=== PATIENT | female | born 1955 | race Caucasian/White ===

== ENCOUNTER 2021-02-02 14:06 | Outpatient (CLI) | payer MEDICARE, MEDICAID | END 2021-02-02 23:59 | disposition home or self-care (01) | LOC: 64 CT 14:06 | PROVIDERS: ATTEND Podiatrist Foot & Ankle Surgery | DX: S82.52XA Displaced fracture of medial malleolus of left tibia, initial encounter for closed fracture (principal); S82.832A Other fracture of upper and lower end of left fibula, initial encounter for closed fracture; M25.472 Effusion, left ankle; X58.XXXA Exposure to other specified factors, initial encounter; Y93.89 Activity, other specified; Y92.89 Other specified places as the place of occurrence of the external cause; Y99.8 Other external cause status | CPT/HCPCS: 73700 ==

== ENCOUNTER 2021-02-09 13:19 | Day surgery (SDC) | payer MEDICARE, MEDICAID ==
[2021-02-05 15:27] LABS: BASOPHILS # (AUTO) 0.1 X10'3 (0-0.2); EOSINOPHILS # (AUTO) 0.1 X10'3 (0-0.9); MONOCYTES # (AUTO) 0.8 X10'3 (0-0.9)
[2021-02-05 15:29] LABS: BASOPHILS % (AUTO) 0.7 % (0-1); EOSINOPHILS % (AUTO) 1.1 % (0-6); LYMPHOCYTES # (AUTO) 1.4 X10'3 (1.1-4.8); LYMPHOCYTES % (AUTO) 13.9 % (21-51); MEAN CORPUSCULAR HEMOGLOBIN 27.6 PG (27.0-31.0); MEAN CORPUSCULAR HGB CONC 32.2 g/dL (33.0-36.5); MEAN CORPUSCULAR VOLUME 85.8 FL (78-98); MONOCYTES % (AUTO) 7.3 % (2-12); PRE OP HEMATOCRIT 30.6 % (35.0-45.0); PRE OP PLATELET COUNT 710 X10'3 (140-440); RED BLOOD COUNT 3.57 X10'6 (4.20-5.60)
[2021-02-05 15:31] LABS: PRE OP HEMOGLOBIN 9.9 g/dL (12.0-16.0)
[2021-02-05 15:37] LABS: ALBUMIN 2.9 G/DL (3.4-5.0); ALBUMIN/GLOBULIN RATIO 0.6 (1.1-1.5); ALKALINE PHOSPHATASE 307 IU/L (46-116); BLOOD UREA NITROGEN 19 MG/DL (7-18); BUN/CREATININE RATIO 16.8 (6.6-38.0); CALCIUM 10.1 MG/DL (8.5-10.1); CHLORIDE 102 MMOL/L (99-107); CREATININE 1.13 MG/DL (0.40-0.90); PRE OP ALT 46 U/L (30-65); PRE OP ANION GAP 11 (8-16); PRE OP AST 39 U/L (10-37); PRE OP BILIRUB, TOTAL 0.6 MG/DL (0.0-1.0); PRE OP GLUCOSE 111 MG/DL (70-104); PRE OP POTASSIUM 3.9 MMOL/L (3.4-5.1); PRE OP SODIUM 140 MMOL/L (135-145); TOTAL CARBON DIOXIDE 27.3 MMOL/L (24-32); TOTAL PROTEIN 7.9 G/DL (6.4-8.2); eGFR 48 ML/MIN
[2021-02-05 16:09] LABS: LARGE PLATELETS FEW; PLATELET ESTIMATE INCREASED
[2021-02-09] VITALS (8 sets, daily range): BP systolic 145–169; BP diastolic 65–75
[~2021-02-09] VITALS: Ht 157.5 cm; Wt 106.6 kg
[~2021-02-09 13:19] MED LIST: DOXY100C77 PO; DULO-31 PO; HYDR-3972 PO; LOSA25TA96 PO; OXYB10TA30 PO; cefazolin/dext.iso 2gm/100ml 100 ML IV ONE; famotidine 20mg tablet PO ONE; ringers solution, lacted 1,000 ML IV SCH; vancomycin 1,500 MG in NS 300ml IV soln IV ONE
[2021-02-09] MEDS ORDERED: ROPIVAcaine 0.2%/PF PUMP/bolus 545 ML POPLITEAL SCH (15:45)
[2021-02-09] MEDS ORDERED: ringers solution, lacted 1,000 ML IV SCH (15:45)
[2021-02-09] MEDS ORDERED: fentaNYL/PF 50MCG/1 ML 2ML syringe IV PRN ×2 (15:45)
[2021-02-09] MEDS ORDERED: labetalol 20mg/4ml (5mg/ml) syringe IV PRN (15:45)
[2021-02-09] MEDS ORDERED: morphine 4 MG/ML inj SYRINge IV PRN (15:45)
[2021-02-09] MEDS ORDERED: ROPIVAcaine 0.2% (10 MG/5 ML) BOLUS INJECTION POPLITEAL PRN (15:45)
[2021-02-09] MEDS ORDERED: morphine 2 MG/ML inj. syringe IV PRN (15:45)
[2021-02-09] MEDS ORDERED: ondansetron/PF 4mg/2ml inj IV PRN (15:45)
[2021-02-09] MEDS ORDERED: enalaprilat dihydrate 2.5mg/2ml vial IV PRN (15:45)
[2021-02-09] MEDS ORDERED: fentaNYL/PF 50MCG/1 ML 2ML syringe ONE ×2 (15:54→18:25)
[2021-02-09] MEDS ORDERED: labetalol 20mg/4ml (5mg/ml) syringe IV ONE (15:55)
[2021-02-09] MEDS ORDERED: sevoflurane 250ml liquid IH ONE (15:55)
[2021-02-09] MEDS ORDERED: midazolam 1 mg/ML 2ml injection ONE ×2 (15:55)
[2021-02-09] MEDS ORDERED: dexamethasone sod phosphate 10mg/ml inj ONE (15:55)
[2021-02-09] MEDS ORDERED: ondansetron/PF 4mg/2ml inj ONE (17:15)
[2021-02-09] MEDS ORDERED: propofol inj 20 ML IV ONE ×2 (17:15)
[2021-02-09] MEDS ORDERED: LIDOcaine 2% (20mg/ml) 5ml vial ONE (17:15)
[2021-02-09] MEDS ORDERED: albumin (Human) 5% 250ml 250 ML IV ONE (17:18)
[2021-02-09] MEDS ORDERED: bacitracin 15gm ointment TP ONE ×2 (17:28→17:41)
--- NOTE | 2021-02-09 18:43 | NUR ---
Received from OR via , accompanied by Anesthesiologist DR HAQUE and report given by Anesthesiolgist. AWAKENS TO VOICE. VITALS STABLE. DRESSING DI. BONNIE PAIN.
[2021-02-09] MEDS ORDERED: oxyCODONE/APAP 10/325mg tablet PO ONE (19:40)
--- NOTE | 2021-02-09 20:13 | NUR ---
AWAKE AND ORIENTED. VITALS STABLE. DRESSING DI. BONNIE PAIN. HOME WITH HER DAUGHTER AT THIS TIME.
== END 2021-02-09 20:13 | disposition home or self-care (01) ==
LOC: PAS 13:19
PROVIDERS: ATTEND Podiatrist Foot & Ankle Surgery
DX: S82.842A Displaced bimalleolar fracture of left lower leg, initial encounter for closed fracture (principal); S82.872A Displaced pilon fracture of left tibia, initial encounter for closed fracture; I12.9 Hypertensive chronic kidney disease with stage 1 through stage 4 chronic kidney disease, or unspecified chronic kidney disease; N18.9 Chronic kidney disease, unspecified; E66.01 Morbid (severe) obesity due to excess calories; Z68.41 Body mass index [BMI] 40.0-44.9, adult; G89.18 Other acute postprocedural pain; D64.9 Anemia, unspecified; Z98.84 Bariatric surgery status; Z90.710 Acquired absence of both cervix and uterus; Z98.890 Other specified postprocedural states; Z88.0 Allergy status to penicillin; Z88.2 Allergy status to sulfonamides; Z88.1 Allergy status to other antibiotic agents; Z79.899 Other long term (current) drug therapy; Z20.822 Contact with and (suspected) exposure to COVID-19; X58.XXXA Exposure to other specified factors, initial encounter; Y93.89 Activity, other specified; Y92.89 Other specified places as the place of occurrence of the external cause; Y99.8 Other external cause status
CPT/HCPCS: 27814; 27827; 36415; 64446; 64448; 73600; 76000; 76937; 80053; 82948; 85025; 93005; A6223; C1713; J1100; J2001; J2250; J2405; J2704; J2795; J3010; J3370; J7040; P9045; U0003; 85008; A4215; A4618; A6253; A6449; A7000; J3490; J7120

== ENCOUNTER 2024-05-26 21:38 | Emergency (ER) | payer MEDICARE, MEDICAID ==
[~2024-05-26] VITALS: Ht 157.5 cm; Wt 102.3 kg
[~2024-05-26 21:38] MED LIST changes: +LOSA-415 PO; -LOSA25TA96 PO; -cefazolin/dext.iso 2gm/100ml 100 ML IV ONE; -famotidine 20mg tablet PO ONE; -ringers solution, lacted 1,000 ML IV SCH; -vancomycin 1,500 MG in NS 300ml IV soln IV ONE
[2024-05-26] MEDS ORDERED: HYDROcodone/acetaminophen 5mg/325mg tablet PO ONE (23:55)
[2024-05-27 00:28] LABS: BASOPHILS # (AUTO) 0.1 X10'3 (0-0.2); BASOPHILS % (AUTO) 1.3 % (0-1); EOSINOPHILS # (AUTO) 0.1 X10'3 (0-0.9); EOSINOPHILS % (AUTO) 2.3 % (0-6); HEMATOCRIT 37.9 % (35.0-45.0); HEMOGLOBIN 12.2 g/dl (12.0-16.0); LYMPHOCYTES # (AUTO) 2.1 X10'3 (1.1-4.8); LYMPHOCYTES % (AUTO) 37.8 % (21-51); MEAN CORPUSCULAR HEMOGLOBIN 28.7 PG (27.0-31.0); MEAN CORPUSCULAR HGB CONC 32.3 g/dL (33.0-36.5); MEAN CORPUSCULAR VOLUME 89.1 FL (78-98); MEAN PLATELET VOLUME 7.8 FL (7.4-10.4); MONOCYTES # (AUTO) 0.5 X10'3 (0-0.9); MONOCYTES % (AUTO) 9.3 % (2-12); NEUTROPHILS # (AUTO) 2.7 X10'3 (1.8-7.7); NEUTROPHILS % (AUTO) 49.3 % (42-75); PLATELET COUNT 252 X10'3 (140-440); RED BLOOD COUNT 4.25 X10'6 (4.20-5.60); RED CELL DISTRIBUTION WIDTH 14.3 % (11.5-14.5); WHITE BLOOD COUNT 5.6 X10'3 (4.5-11.0)
[2024-05-27 00:44] LABS: ALANINE AMINOTRANSFERASE 23 U/L (12-78); ALBUMIN 3.8 G/DL (3.4-5.0); ALKALINE PHOSPHATASE 120 IU/L (46-116); ANION GAP 9 (8-16); ASPARTATE AMINO TRANSFERASE 16 U/L (10-37); BILIRUBIN,TOTAL 0.8 MG/DL (0.1-1.0); BLOOD UREA NITROGEN 28 MG/DL (7-18); BUN/CREATININE RATIO 20.1 (10.0-20.0); CALCIUM 9.1 MG/DL (8.5-10.1); CHLORIDE 106 MMOL/L (99-107); CREATININE 1.39 MG/DL (0.40-0.90); GLUCOSE 103 MG/DL (70-104); SODIUM 139 MMOL/L (135-145); TOTAL CARBON DIOXIDE 24.2 MMOL/L (24-32); TOTAL PROTEIN 7.6 G/DL (6.4-8.2); eCRCL 30 ML/MIN; eGFR 38 ML/MIN
[2024-05-27] MEDS: HYDROcodone/acetaminophen 5mg/325mg tablet PO ONE (00:46)
[2024-05-27] MEDS: ondansetron 4mg rapidly disintigrating tab PO ONE (00:46)
[2024-05-27 00:53] LABS: MAGNESIUM 1.9 MG/DL (1.5-2.4); PHOSPHORUS 4.1 MG/DL (2.3-4.5); THYROID STIMULATING HORMONE 3.23 ulU/ml (0.34-4.50)
[2024-05-27 00:57] VITALS: BP 217/79; PULSE 74; RESP 15; TEMP 98.3; O2SAT 98
[2024-05-27 01:13] LABS: BILIRUBIN,URINE NEGATIVE (Neg); CLARITY,URINE CLOUDY (Clear); COLOR,URINE YELLOW (Yellow); GLUCOSE, URINE NEGATIVE (Neg); KETONES,URINE NEGATIVE (Neg); LEUKOCYTE ESTERASE ,URINE MODERATE (Neg); NITRITES, URINE POSITIVE (Neg); OCCULT BLOOD,URINE TRACE-INTACT (Neg); PH,URINE 5.5 (4.8-8.0); PROTEIN,URINE NEGATIVE (Neg); UROBILINOGEN,URINE 0.2 E.U/dL (0.2-1.0)
[2024-05-27 01:14] LABS: UA COLLECTION TYPE NON-SPECIFIED
[2024-05-27 01:23] LABS: MUCUS STRANDS NONE SEEN /LPF (Neg); SQUAMOUS EPITHELIAL CELL,UR FEW /LPF (FEW); TRANSITIONAL EPI CELLS,URINE FEW /HPF
[2024-05-27 01:24] LABS: BACTERIA,URINE 4+ /HPF (Neg); WBC,URINE TNTC /HPF (0-4)
[2024-05-27 01:25] LABS: WBC CLUMPS,URINE FEW /HPF (NEGATIVE)
[2024-05-27] MEDS ORDERED: CefTRIAXone/D5W-Rocephin 1gm 50 ML IV ONE (01:50)
[2024-05-27] MEDS ORDERED: CEPH-585 PO (02:51)
[2024-05-27] MEDS: cephalexin 250mg capsule PO ONE (03:07)
== END 2024-05-27 03:11 | disposition home or self-care (01) ==
LOC: ER 21:38
DX: N39.0 Urinary tract infection, site not specified (principal); M54.16 Radiculopathy, lumbar region; M54.2 Cervicalgia; R40.4 Transient alteration of awareness; Z88.8 Allergy status to other drugs, medicaments and biological substances; Z88.0 Allergy status to penicillin; Z88.2 Allergy status to sulfonamides; Z88.1 Allergy status to other antibiotic agents; Z79.1 Long term (current) use of non-steroidal anti-inflammatories (NSAID); Z79.2 Long term (current) use of antibiotics; Z79.899 Other long term (current) drug therapy
CPT/HCPCS: 36415; 70450; 72125; 72128; 72131; 80053; 81001; 83735; 84100; 84443; 85025; 93005; 99284